=== PATIENT | female | born 1995 | race Caucasian/White ===

== ENCOUNTER 2017-01-26 22:25 | Emergency (ER) | payer OTHER | END 2017-01-26 23:58 | disposition home or self-care (01) | LOC: ER 22:25 | DX: R07.89 Other chest pain (principal); F32.9 Major depressive disorder, single episode, unspecified; Z91.018 Allergy to other foods | CPT/HCPCS: 36415 ==

== ENCOUNTER 2017-07-05 01:59 | Emergency (ER) | payer OTHER | END 2017-07-05 03:28 | disposition home or self-care (01) | LOC: ER 01:59 | DX: G43.909 Migraine, unspecified, not intractable, without status migrainosus (principal); F32.9 Major depressive disorder, single episode, unspecified; Z91.018 Allergy to other foods | CPT/HCPCS: 96361; 96374; 96375; J1885; J2765 ==